=== PATIENT | female | born 1945 | race Caucasian/White ===

== ENCOUNTER 2016-07-13 15:15 | Emergency (ER) | payer OTHER ==
[~2016-07-13] VITALS: Ht 167.6 cm; Wt 86.0 kg
[2016-07-13 15:49] LABS: ADD MIUA? YES; BILIRUBIN NEGATIVE; BLOOD SMALL; COLOR YELLOW ((YELLOW)); GLUCOSE (STRIP) NEGATIVE; KETONES NEGATIVE; LEUKOCYTES MODERATE; NITRITE NEGATIVE; PH, URINE 5.5 (5-8); PROTEIN (STRIP) NEGATIVE; SPECIFIC GRAVITY 1.022 (1.000-1.030); UROBILINOGEN 0.2 MG/DL (0.2-1.0)
[2016-07-13 16:13] LABS: HEMATOCRIT 38.3 % (36.0-46.0); MCH 26.6 PG (29.0-34.0); MCHC 32.9 G/DL (30.0-36.0); MCV 80.8 FL (83-99); PLATELET COUNT 282 K/uL (156-360); RBC DIS.WIDTH-CV 19.1 % (11.8-14.6); RBC DIS.WIDTH-SD 54.7 % (39-53); RED BLOOD COUNT 4.74 M/uL (3.80-5.20); WHITE BLOOD COUNT 10.6 K/uL (4.1-10.2)
[2016-07-13 16:14] LABS: RED BLOOD CELLS 0-5 /HPF (0-5)
[2016-07-13 16:15] LABS: BACTERIA NONE SEEN; CASTS PRESENT /LPF; CRYSTALS NONE SEEN; EPITHELIAL CELLS 1+; HYALINE CASTS 0-5 /LPF; MUCUS NONE SEEN; UCUL ADDED? NO
[2016-07-13 16:28] LABS: CHLORIDE 107 mEq/L (99-109); SODIUM 139 mEq/L (136-147)
[2016-07-13 16:30] LABS: GLUCOSE 115 mg/dL (70-99)
[2016-07-13 16:31] LABS: ANION GAP 10 MEQ/L (2-14)
[2016-07-13 16:34] LABS: GFR ESTIMATE (CALCULATED) 34 mL/min/
[2016-07-13 16:35] LABS: UREA NITROGEN (BUN) 32 mg/dL (9-23)
[2016-07-13] MEDS ORDERED: PERCOCET 5/31 TABLET PO (20:42)
[2016-07-13] MEDS ORDERED: CIPRO500 MG PO (20:42)
[2016-07-13] MEDS ORDERED: ZOFRAN ODT4 MG PO (20:42)
[2016-07-13 22:21] VITALS: BP 131/78
== END 2016-07-13 22:27 | disposition home or self-care (01) ==
LOC: EME 15:15 → RME 15:15
DX: N20.1 Calculus of ureter (principal); N23 Unspecified renal colic; N39.0 Urinary tract infection, site not specified; R11.0 Nausea; I10 Essential (primary) hypertension; E03.9 Hypothyroidism, unspecified; Z87.891 Personal history of nicotine dependence; Z88.2 Allergy status to sulfonamides
CPT/HCPCS: 74176; 80048; 81003; 85027; 87086; 99281; 99284; J0744; J1885; J2405; J7040

== ENCOUNTER 2016-07-15 11:02 | Emergency (ER) | payer OTHER ==
[~2016-07-15] VITALS: Ht 167.6 cm; Wt 86.4 kg
[~2016-07-15 11:02] MED LIST: CIPRO500 MG PO; PERCOCET 5/31 TABLET PO; ZOFRAN ODT4 MG PO
[2016-07-15 12:25] LABS: CHLORIDE 106 mEq/L (99-109); POTASSIUM 4.3 mEq/L (3.7-5.4); SODIUM 137 mEq/L (136-147)
[2016-07-15 12:26] LABS: GLUCOSE 96 mg/dL (70-99)
[2016-07-15 12:28] LABS: ANION GAP 12 MEQ/L (2-14)
[2016-07-15 12:30] LABS: GFR ESTIMATE (CALCULATED) 31 mL/min/
[2016-07-15 12:31] LABS: UREA NITROGEN (BUN) 28 mg/dL (9-23)
[2016-07-15 12:32] LABS: ADD MIUA? YES; BILIRUBIN NEGATIVE; BLOOD NEGATIVE; COLOR YELLOW ((YELLOW)); GLUCOSE (STRIP) NEGATIVE; KETONES NEGATIVE; LEUKOCYTES SMALL; NITRITE NEGATIVE; PH, URINE 5.5 (5-8); PROTEIN (STRIP) NEGATIVE; UROBILINOGEN 0.2 MG/DL (0.2-1.0)
[2016-07-15 12:56] LABS: BACTERIA RARE; CASTS NONE SEEN /LPF; CRYSTALS NONE SEEN; EPITHELIAL CELLS 1+; MUCUS NONE SEEN; RED BLOOD CELLS NONE SEEN /HPF (0-5); UCUL ADDED? NO; WHITE BLOOD CELLS RARE /HPF (0-5)
[2016-07-15] MEDS ORDERED: CITALOPRAM HBR20 MG PO (13:12)
[2016-07-15] MEDS ORDERED: BUPROPION HCL150 M2 PO (13:12)
[2016-07-15] MEDS ORDERED: NEXIUM40 MG PO (13:13)
[2016-07-15] MEDS ORDERED: CLONAZEPAM0.5 MG PO (13:13)
[2016-07-15] MEDS ORDERED: LEVOTHYROXINE125 MCG PO (13:13)
[2016-07-15] MEDS ORDERED: MULTIPLE VITAM1 EACH PO (13:14)
[2016-07-15 13:55] LABS: HEMATOCRIT 36.1 % (36.0-46.0); MCH 26.4 PG (29.0-34.0); MCHC 32.4 G/DL (30.0-36.0); MCV 81.5 FL (83-99); PLATELET COUNT 255 K/uL (156-360); RBC DIS.WIDTH-CV 18.8 % (11.8-14.6); RED BLOOD COUNT 4.43 M/uL (3.80-5.20); WHITE BLOOD COUNT 9.6 K/uL (4.1-10.2)
[2016-07-15] MEDS ORDERED: FLOMAX0.4 MG PO (15:08)
[2016-07-15] MEDS ORDERED: PERCOCET 5/31 TABLET PO (15:08)
[2016-07-15] MEDS ORDERED: ZOFRAN ODT4 MG PO (15:08)
[2016-07-15 15:19] VITALS: BP 111/57
== END 2016-07-15 15:21 | disposition home or self-care (01) ==
LOC: EME 11:02
DX: N20.0 Calculus of kidney (principal); E03.9 Hypothyroidism, unspecified; I10 Essential (primary) hypertension; Z87.891 Personal history of nicotine dependence; Z87.442 Personal history of urinary calculi
CPT/HCPCS: 74000; 80048; 81003; 85027; 99281; 99284; J1885